=== PATIENT | female | born 1945 | race Caucasian/White ===

== ENCOUNTER 2022-08-16 14:56 | Outpatient (CLI) | payer MEDICARE ==
[2022-08-16 15:46] LABS: PTT 26.8 sec (22.0-33.0); Prothrombin Time 10.7 sec (9.5-12.1)
== END 2022-08-16 14:57 | disposition home or self-care (01) ==
LOC: LABBT 14:56
PROVIDERS: ATTEND Neurological Surgery
DX: Z01.812 Encounter for preprocedural laboratory examination (principal); M50.00 Cervical disc disorder with myelopathy, unspecified cervical region
CPT/HCPCS: 85610; 85730

== ENCOUNTER 2022-08-19 05:37 | Day surgery (SDC) | payer MEDICARE ==
[2022-08-18 09:25] VITALS: BMI 29.0
[2022-08-19] MEDS ORDERED: Neomycin-Polymyxin 1 ML AMP ONE (06:13)
[2022-08-19] MEDS ORDERED: Thrombin 5000 UNITS/5 ML VIAL ONE ×2 (06:13)
[2022-08-19] MEDS ORDERED: Vancomycin 1 GM/200 ML (FROZEN) BAG ONE ×2 (06:18→06:50)
[2022-08-19] MEDS ORDERED: Fentanyl 250 MCG/5 ML VIAL ONE (06:42)
[2022-08-19] MEDS ORDERED: SUGAMMADEX SODIUM 200 MG/2 ML VIAL ONE ×2 (06:42→10:06)
[2022-08-19] MEDS ORDERED: PROPOFOL 200 MG/20 ML VIAL ONE (07:01)
[2022-08-19] MEDS ORDERED: NEOSTIGMINE 3 MG/3 ML SYR 3 MG/3 ML SYRINGE ONE (07:01)
[2022-08-19] MEDS ORDERED: Rocuronium Bromide 10 MG/ML (10ML VIAL) ONE (07:01)
[2022-08-19] MEDS ORDERED: Ondansetron PF 4 MG/2 ML Vial ONE ×2 (07:01→10:06)
[2022-08-19] MEDS ORDERED: Dexamethasone 20 MG/5 ML VIAL ONE (07:01)
[2022-08-19] MEDS ORDERED: Glycopyrrolate 0.2 MG/ML 5 ML SYRINGE ONE (07:01)
[2022-08-19] MEDS ORDERED: Lidocaine 1% PF 5 ML VIAL ONE (07:01)
[2022-08-19] MEDS ORDERED: HYDROcodone/Acetaminophen 5/325 mg Tablet ONE (12:48)
== END 2022-08-19 13:04 | disposition home or self-care (01) ==
LOC: SDC 05:37
PROVIDERS: ATTEND Neurological Surgery
PROC: 0RG20A0 Fusion of 2 or more Cervical Vertebral Joints with Interbody Fusion Device, Anterior Approach, Anterior Column, Open Approach (ICD-10-PCS; principal; 2022-08-19)
DX: M50.021 Cervical disc disorder at C4-C5 level with myelopathy (principal); M48.061 Spinal stenosis, lumbar region without neurogenic claudication; M48.07 Spinal stenosis, lumbosacral region; I10 Essential (primary) hypertension; I25.10 Atherosclerotic heart disease of native coronary artery without angina pectoris; I48.91 Unspecified atrial fibrillation; E03.9 Hypothyroidism, unspecified; E78.00 Pure hypercholesterolemia, unspecified; Z87.891 Personal history of nicotine dependence; Z79.01 Long term (current) use of anticoagulants; Z79.890 Hormone replacement therapy; Z79.899 Other long term (current) drug therapy; Z88.0 Allergy status to penicillin; Z88.1 Allergy status to other antibiotic agents; Z88.2 Allergy status to sulfonamides; Z88.8 Allergy status to other drugs, medicaments and biological substances; Z95.0 Presence of cardiac pacemaker
CPT/HCPCS: 20930; 20936; 22551; 22552; 22845; 22853 ×2; C1713 ×5; J3370; J1100; J2405; J2704; J3010